=== PATIENT | male | born 1950 | race American Indian/Alaskan Native ===

== ENCOUNTER 2019-02-25 05:54 | Observation (INO) | payer MEDICARE ==
[~2019-02-25 05:54] MED LIST: LACTATED RINGERS 1,000 ML IV SCH
[2019-02-25] MEDS ORDERED: NORVASC PO NR (06:00)
[2019-02-25] MEDS ORDERED: ANCEF/STERILE WATER 2 GM/20 ML 2 GM/20 ML SYRINGE IV NR (06:00)
[2019-02-25] MEDS ORDERED: ZOFRAN IV PRN ×2 (07:15→10:04)
[2019-02-25] MEDS ORDERED: SUBLIMAZE IV PRN (07:15)
--- NOTE | 2019-02-25 07:37 | Anesthesia Day of Surgery ---
Anesthesia Day of Surgery - Day of Surgery Patient Examined: Yes Patient H&P Reviewed: Yes Patient is NPO: Yes Beta Blockers: Yes
--- NOTE | 2019-02-25 07:37 | Anesthesia Consultation ---
Anesthesia Consult and Med Hx Date of service: 02/25/19 - Airway Anesthetic Teeth Evaluation: Poor (reports multiple loose teeth, chipped top incisors) ROM Head & Neck: Adequate Mental/Hyoid Distance: Inadequate Mallampati Class: Class III Intubation Access Assessment: Possibly Difficult - Pulmonary Exam CTA: Yes - Cardiac Exam Cardiac Exam: RRR - Pre-Operative Health Status ASA Pre-Surgery Classification: ASA3 Proposed Anesthetic Plan: General - Pulmonary Hx Smoking: Yes (currently 1/2 PPD) Hx Respiratory Symptoms: No COPD: No Hx Sleep Apnea: No - Cardiovascular System Hx Hypertension: Yes (will give home dose antihypertensives this morning) Hx Coronary Artery Disease: Yes Hx Heart Attack/AMI: Yes (>10yrs ago) Hx Angina: No Hx Percutaneous Transluminal Coronary Angioplasty (PTCA): No Hx Cardia Arrhythmia: No - Central Nervous System CVA: No Hx Psychiatric Problems: No - Gastrointestinal Hx Gastroesophageal Reflux Disease: Yes (controlled) - Endocrine Hx Renal Disease: No Hx Liver Disease: No Hx Insulin Dependent Diabetes: No Hx Non-Insulin Dependent Diabetes: No Hx Thyroid Disease: No - Other Systems Hx Obesity: No - Additional Comments Anesthesia Medical History Comments: No hx anesthetic complications. >4 mets functional capacity. No symptoms of decompensation.
[2019-02-25] MEDS ORDERED: VERSED ONE (07:47)
[2019-02-25] MEDS ORDERED: DIPRIVAN 10 MG/ML IV ONE (07:48)
[2019-02-25] MEDS ORDERED: SUBLIMAZE ONE (07:48)
[2019-02-25] MEDS ORDERED: OMNIPAQUE (240mg) IV ONE (08:11)
[2019-02-25] MEDS ORDERED: NACL 0.9% IR ONE (08:11)
[2019-02-25] MEDS ORDERED: NEO SYNEPHRINE ONE (08:30)
[2019-02-25] MEDS ORDERED: LASIX ONE (09:00)
[2019-02-25] MEDS ORDERED: XYLOCAINE MPF 2% ONE (09:00)
--- NOTE | 2019-02-25 10:03 | Post Operative Note ---
Date of procedure: 02/25/19 Pre-op diagnosis: hematuria Post-op diagnosis: other (invassive bladder cancer) Findings: solid bladder cancer Procedure: cysto bipsies rpgs turbt Anesthesia: GETA Surgeon: WILVER MADRID Estimated blood loss: minimal Pathology: list (bladder prostate) Specimen disposition: to lab Condition: stable Disposition: PACU
[2019-02-25] MEDS ORDERED: NARCAN 0.4 MG/1 ML IV PRN (10:04)
[2019-02-25] MEDS ORDERED: NACL 0.9% IR PRN (10:04)
[2019-02-25] MEDS ORDERED: AMBIEN PO PRN (10:04)
[2019-02-25] MEDS ORDERED: NORMODYNE IV ONE ×2 (10:23→10:26)
--- NOTE | 2019-02-25 10:40 | Operative Report ---
PREOPERATIVE DIAGNOSES: Gross hematuria, bladder mass, solid anterior bladder mass with evidence of surrounding erythema, J-hooking of both ureters, mild prostatic enlargement. POSTOPERATIVE DIAGNOSES: Gross hematuria, bladder mass, solid anterior bladder mass with evidence of surrounding erythema, J-hooking of both ureters, mild prostatic enlargement. PROCEDURE: Cystoscopy, retrograde, bladder biopsies, transurethral resection of bladder tumor, transurethral biopsies of the prostate fulguration. SURGEON: Holger Emmanuel MD ANESTHESIA: General. FINDINGS: This is a gentleman who presented 3 days ago with gross hematuria that has been going on for a while. He is a heavy smoker and now presents for treatment. DESCRIPTION OF PROCEDURE: The patient was brought to the operating room and placed on the operating table. Following induction of anesthesia, he was placed in lithotomy position, prepped and draped in usual sterile fashion. Cystourethroscopy showed a mass with surrounding bullous edema. Biopsies were taken, posterior wall and the surrounding area and cauterized. Retrograde showed J-hooking and very narrow and very tiny pinpoint orifices. We did not need to place a catheter because it looked like there was a large tumor with debris in the bladder. Cytology was sent. The resectoscope was placed under direct vision and the solid tumor was difficult to resect because it was very anterior. We used pressure. It was anterior and towards the dome. We did not want to perforate. We sent a frozen section and that came back high-grade necrotic very poorly differentiated cancer. We cauterized the area. We biopsied the prostatic urethra. The patient tolerated the procedure well. A 3-way catheter was clear. Family notified, brought to recovery room with minimal blood loss in stable condition. JOB# [id number] DONAVAN/DARIUS
[2019-02-25] MEDS ORDERED: NEOSPORIN GU IR ONE (11:00)
[2019-02-25] MEDS ORDERED: NACL IR ONE (11:00)
[2019-02-25] MEDS: ANCEF/NS 1 GM/50 ML 1 GM/50 ML BAG IV SCH ×2 (13:00→21:35)
--- NOTE | 2019-02-25 13:19 | Consultation ---
History of Present Illness - Reason for Consult Consult date: 02/25/19 HTN Requesting physician: GREGORY DOE - History of Present Illness 68 YO Male with HTN, Nicotine Dependence, [place], Obesity Hypoventilation, GERD, [place], CAD admitted for elective urologic surgery. Consult placed by Dr. Doe for medical management. Pt seen and evaluated in his room. Pt denies fever, chills, CP, Palpitations, NVD, Trauma, BRBPR, Productive Cough, skin rash, or recent ill contacts. No reported nursing events. Past History Past Medical History: acute [place], CAD, GERD, other ([place], Obeisty Hypoventilation) Past Surgical History: Other (Bladder surgery) Social history: single, smoking Family history: CAD, hypertension Medications and Allergies Allergies Allergy/AdvReac Type Severity Reaction Status Date / Time No Known Allergies Allergy Unverified 02/25/19 06:32 Home Medications Medication Instructions Recorded Confirmed Last Taken Type Famotidine 02/25/19 02/24/19 20:00 History Lisinopril 02/25/19 02/24/19 20:00 History Metoprolol 02/25/19 02/24/19 20:00 History Pravastatin 02/25/19 02/24/19 20:00 History amLODIPine 02/25/19 02/24/19 20:00 History Active Meds: Active Medications Amlodipine Besylate (Norvasc) 10 mg PO PREOP NR Stop: 02/25/19 16:00 Last Admin: 02/25/19 07:59 Dose: 10 mg Documented by: Fentanyl (Sublimaze) 50 mcg IV Q5MIN PRN PRN Reason: Pain , Severe (7-10) Stop: 02/25/19 20:00 Last Admin: 02/25/19 10:15 Dose: 50 mcg Documented by: Lactated Ringer's (Lactated Ringers) 1,000 mls @ 100 mls/hr IV DIRECT YONATHAN Last Admin: 02/25/19 06:36 Dose: 100 mls/hr Documented by: Potassium Chloride/Dextrose/Sod Cl (D5w/0.45% Nacl/Kcl 20 Meq) 20 meq in 1,000 mls @ 125 mls/hr IV DIRECT YONATHAN Cefazolin Sodium (Ancef/Ns 1 Gm/50 Ml) 1 gm in 50 mls @ 100 mls/hr IV Q8H YONATHAN; Protocol Stop: 02/26/19 12:29 Naloxone HCl (Narcan 0.4 Mg/1 Ml) 0.1 mg IV Q2MIN PRN PRN Reason: Res Rate </= 8 or 02 SAT < 92% Ondansetron HCl (Zofran) 4 mg IV ONCE PRN PRN Reason: Nausea And Vomiting Stop: 02/25/19 20:00 Ondansetron HCl (Zofran) 4 mg IV Q8H PRN PRN Reason: Nausea And Vomiting Oxycodone/Acetaminophen (Percocet 5/325) 2 tab PO Q6H PRN PRN Reason: Pain, Moderate (4-6) Sodium Chloride (Nacl 0.9%) 30 ml IR Q2H PRN PRN Reason: Wound Care Sodium Chloride (Nacl 0.9%) 2,000 ml IR DIRECT YONATHAN Zolpidem Tartrate (Ambien) 5 mg PO QHS PRN PRN Reason: Sleep Review of Systems Constitutional: no weight loss, no weight gain, no fever, no chills Ears, nose, mouth and throat: no ear pain, no ear discharge, no tinnitis, no decreased hearing, no nose pain Cardiovascular: no chest pain, no orthopnea, no palpitations, no rapid/irregular heart beat, no edema Respiratory: no cough, no cough with sputum, no excessive sputum, no hemoptysis, no shortness of breath Gastrointestinal: no nausea, no vomiting, no diarrhea, no constipation Genitourinary Male: no hematuria, no urinary hesitancy, no incontinence, no genital pain Rectal: no pain, no incontinence, no bleeding Musculoskeletal: no neck stiffness, no arm numbness/tingling, no low back pain, no leg numbness/tingling Integumentary: no rash, no pruritis, no redness, no sores, no wounds, no jaundice Neurological: no transient paralysis, no paralysis, no weakness, no parathesias, no numbness, no seizures, no syncope Psychiatric: no anxiety, no memory loss, no change in sleep habits, no sleep disturbances, no insomnia, no hypersomnia, no change in appetite Endocrine: no cold intolerance, no heat intolerance, no excessive thirst, no polydipsia, no polyuria Hematologic/Lymphatic: no easy bruising, no easy bleeding Allergic/Immunologic: no urticaria, no allergic rhinitis, no wheezing Exam - Constitutional Vitals: Temp Pulse Resp BP Pulse Ox 98.4 F 52 L 18 197/97 100 02/25/19 12:32 02/25/19 11:06 02/25/19 12:32 02/25/19 12:32 02/25/19 11:06 General appearance: Present: no acute distress, well-nourished - EENT Eyes: Present: PERRL ENT: hearing intact, clear oral mucosa - Neck Neck: Present: supple, normal ROM - Respiratory Respiratory effort: normal Respiratory: bilateral: CTA - Cardiovascular Heart Sounds: Present: S1 & S2. Absent: rub, click - Extremities Extremities: pulses symmetrical, No edema Peripheral Pulses: within normal limits - Abdominal General gastrointestinal: Present: soft, non-tender, non-distended, normal bowel sounds Male genitourinary: Present: normal - Integumentary Integumentary: Present: clear, warm, dry - Musculoskeletal Musculoskeletal: gait normal, strength equal bilaterally - Psychiatric Psychiatric: appropriate mood/affect, intact judgment & insight - Neurologic Neurologic: CNII-XII intact, moves all extremities Assessment and Plan - Patient Problems (1) HTN (hypertension) Current Visit: Yes Status: Acute Qualifiers: Hypertension type: essential hypertension Qualified Code(s): I10 - Essential (primary) hypertension Plan to address problem: Monitor BP q shift, IV hydralazine prn, supportive care. (2) CAD (coronary artery disease) Current Visit: Yes Status: Acute Qualifiers: Associated angina: without angina Plan to address problem: low cholesterol diet, supportive care, risk factor reduction. (3) GERD (gastroesophageal reflux disease) Current Visit: Yes Status: Acute Qualifiers: Esophagitis presence: without esophagitis Qualified Code(s): K21.9 - Gastro-esophageal reflux disease without esophagitis Plan to address problem: PPI therapy, (4) Obesity hypoventilation syndrome Current Visit: Yes Status: Acute Plan to address problem: Supplemental oxygen, nebulizer therapy, NIPPV as clinically indicated, Incentive spirometry.
--- NOTE | 2019-02-25 14:19 | Fluoroscopy Report ---
FLUOROSCOPY RETROGRADE UROGRAPHY: HISTORY: Hematuria. FINDINGS: Fluoroscopy was provided by radiology during retrograde urography by the urologist. 4 fluoroscopic images were captured. ERCP and bladder biopsies were performed per the operative note. Please correlate with the procedural report if needed.
--- NOTE | 2019-02-25 14:20 | Consultation ---
History of Present Illness Consult date: 02/25/19 Consult reason: chest pain History of present illness: Patient is a 69 year old poor historian. Records reviewed reports patient has a history of bladder mass who has undergone cystoscopy and transurethral resection of the bladder tumor admitted to this hospital post procedure. Upon arrival to the surgical floor, patient complained of chest pain thus this cardiac consultation. Patient describes chest pain as mid-sternal, associated with the urge to urinate. Noted with uncontrolled hypertension, blood pressure 197/97. Patient denies diaphoresis, unusual shortness of breath or palpitations. A 12 lead ECG is sinus rhythm, no acute ischemic changes. Medications and Allergies Allergies Allergy/AdvReac Type Severity Reaction Status Date / Time No Known Allergies Allergy Unverified 02/25/19 06:32 Home Medications Medication Instructions Recorded Confirmed Last Taken Type Famotidine 02/25/19 02/24/19 20:00 History Lisinopril 02/25/19 02/24/19 20:00 History Metoprolol 02/25/19 02/24/19 20:00 History Pravastatin 02/25/19 02/24/19 20:00 History amLODIPine 02/25/19 02/24/19 20:00 History Active Meds: Active Medications Amlodipine Besylate (Norvasc) 10 mg PO PREOP NR Stop: 02/25/19 16:00 Last Admin: 02/25/19 07:59 Dose: 10 mg Documented by: Fentanyl (Sublimaze) 50 mcg IV Q5MIN PRN PRN Reason: Pain , Severe (7-10) Stop: 02/25/19 20:00 Last Admin: 02/25/19 10:15 Dose: 50 mcg Documented by: Lactated Ringer's (Lactated Ringers) 1,000 mls @ 100 mls/hr IV DIRECT YONATHAN Last Admin: 02/25/19 06:36 Dose: 100 mls/hr Documented by: Potassium Chloride/Dextrose/Sod Cl (D5w/0.45% Nacl/Kcl 20 Meq) 20 meq in 1,000 mls @ 125 mls/hr IV DIRECT YONATHAN Cefazolin Sodium (Ancef/Ns 1 Gm/50 Ml) 1 gm in 50 mls @ 100 mls/hr IV Q8H YONATHAN; Protocol Stop: 02/26/19 12:29 Naloxone HCl (Narcan 0.4 Mg/1 Ml) 0.1 mg IV Q2MIN PRN PRN Reason: Res Rate </= 8 or 02 SAT < 92% Ondansetron HCl (Zofran) 4 mg IV ONCE PRN PRN Reason: Nausea And Vomiting Stop: 02/25/19 20:00 Ondansetron HCl (Zofran) 4 mg IV Q8H PRN PRN Reason: Nausea And Vomiting Oxycodone/Acetaminophen (Percocet 5/325) 2 tab PO Q6H PRN PRN Reason: Pain, Moderate (4-6) Sodium Chloride (Nacl 0.9%) 30 ml IR Q2H PRN PRN Reason: Wound Care Sodium Chloride (Nacl 0.9%) 2,000 ml IR DIRECT YONATHAN Zolpidem Tartrate (Ambien) 5 mg PO QHS PRN PRN Reason: Sleep Physical Examination Vital Signs Temp Pulse Resp BP Pulse Ox 98.4 F 61 18 178/95 98 02/25/19 06:30 02/25/19 06:30 02/25/19 06:30 02/25/19 06:30 02/25/19 06:30 General appearance: no acute distress HEENT: Positive: PERRL Neck: Positive: trachea midline Cardiac: Positive: Reg Rate and Rhythm Lungs: Positive: Decreased Breath Sounds Neuro: Positive: Grossly Intact Extremities: Absent: edema Assessment and Plan Bladder mass s/p cystoscopy/TURBT Chest pain, atypical Hypertension -uncontrolled Tobacco abuse Recommend: Set of troponin. Optimal blood pressure management. Obtain prior cardiac records from his primary exercise specialist, Dr Reese, for review. Advised smoking cessation.
[2019-02-25] MEDS ORDERED: APRESOLINE IV PRN (17:00)
[2019-02-25] MEDS: PERCOCET 5/325 PO PRN (17:14)
--- NOTE | 2019-02-25 17:47 | Progress Note ---
Assessment and Plan miller clear suspect needs major operation cardiology help seen reflux an d bladder spasms Subjective Date of service: 02/25/19 Principal diagnosis: bladder cancer Objective - Constitutional Vitals: Vital Signs - 12hr 02/25/19 02/25/19 02/25/19 06:30 06:35 10:09 Temperature 98.4 F 98.4 F 97.0 F L Pulse Rate 61 61 79 Respiratory 18 18 13 Rate Blood Pressure 178/95 178/95 182/92 O2 Sat by Pulse 98 98 98 Oximetry 02/25/19 02/25/19 02/25/19 10:14 10:15 10:19 Temperature Pulse Rate 77 72 Respiratory 16 16 14 Rate Blood Pressure 201/99 181/95 O2 Sat by Pulse 100 100 Oximetry 02/25/19 02/25/19 02/25/19 10:24 10:39 10:44 Temperature 97.6 F Pulse Rate 75 64 62 Respiratory 14 16 16 Rate Blood Pressure 165/94 164/86 166/88 O2 Sat by Pulse 100 100 100 Oximetry 02/25/19 02/25/19 11:06 12:32 Temperature 97.4 F L 98.4 F Pulse Rate 52 L Respiratory 18 18 Rate Blood Pressure 180/92 197/97 O2 Sat by Pulse 100 Oximetry General appearance: Present: no acute distress - Respiratory Respiratory effort: normal Medications & Allergies - Medications Allergies/Adverse Reactions: Allergies No Known Allergies Allergy (Unverified 02/25/19 06:32) Home Medications: Home Medications Medication Instructions Recorded Confirmed Last Taken Type Famotidine 02/25/19 02/24/19 20:00 History Lisinopril 02/25/19 02/24/19 20:00 History Metoprolol 02/25/19 02/24/19 20:00 History Pravastatin 02/25/19 02/24/19 20:00 History amLODIPine 02/25/19 02/24/19 20:00 History Active Medications: Generic Name Dose Route Start Last Admin Trade Name Freq PRN Reason Stop Dose Admin Amlodipine Besylate 10 mg 02/25/19 18:00 Norvasc PO QDAY YONATHAN Fentanyl 50 mcg 02/25/19 07:15 02/25/19 10:15 Sublimaze IV 02/25/19 20:00 50 mcg Q5MIN PRN Administration Pain , Severe (7-10) Hydralazine HCl 10 mg 02/25/19 17:00 Apresoline IV Q6H PRN htn Lactated Ringer's 1,000 mls @ 100 mls/hr 02/22/19 17:00 02/25/19 06:36 Lactated Ringers IV 100 mls/hr DIRECT YONATHAN Administration Potassium Chloride/Dextrose/Sod Cl 20 meq in 1,000 mls @ 125 mls/hr 02/25/19 11:00 D5w/0.45% Nacl/Kcl 20 Meq IV DIRECT YONATHAN Cefazolin Sodium 1 gm in 50 mls @ 100 mls/hr 02/25/19 12:00 Ancef/Ns 1 Gm/50 Ml IV 02/26/19 12:29 Q8H YONATHAN Protocol Lisinopril 10 mg 02/25/19 18:00 Zestril PO QDAY YONATHAN Naloxone HCl 0.1 mg 02/25/19 10:04 Narcan 0.4 Mg/1 Ml IV Q2MIN PRN Res Rate </= 8 or 02 SAT < 92% Ondansetron HCl 4 mg 02/25/19 07:15 Zofran IV 02/25/19 20:00 ONCE PRN Nausea And Vomiting Ondansetron HCl 4 mg 02/25/19 10:04 Zofran IV Q8H PRN Nausea And Vomiting Oxycodone/Acetaminophen 2 tab 02/25/19 10:04 02/25/19 17:14 Percocet 5/325 PO 2 tab Q6H PRN Administration Pain, Moderate (4-6) Sodium Chloride 30 ml 02/25/19 10:04 Nacl 0.9% IR Q2H PRN Wound Care Sodium Chloride 2,000 ml 02/25/19 11:00 Nacl 0.9% IR DIRECT YONATHAN Zolpidem Tartrate 5 mg 02/25/19 10:04 Ambien PO QHS PRN Sleep
[2019-02-25] MEDS: NORVASC PO SCH (18:48)
[2019-02-25] MEDS: ZESTRIL PO SCH (18:49)
[2019-02-25] MEDS: NACL 0.9% IR SCH ×3 (19:00→23:46)
[2019-02-25] MEDS ORDERED: MORPHINE IV PRN (23:09)
[2019-02-25] MEDS: D5W/0.45% NACL/KCL 20 MEQ 20 MEQ/1,000 ML BAG IV SCH (23:45)
[2019-02-26] MEDS: NACL 0.9% IR SCH ×4 (01:00→06:30)
[2019-02-26] MEDS: ANCEF/NS 1 GM/50 ML 1 GM/50 ML BAG IV SCH (05:01)
[2019-02-26] MEDS: PERCOCET 5/325 PO PRN (07:33)
[2019-02-26] MEDS: D5W/0.45% NACL/KCL 20 MEQ 20 MEQ/1,000 ML BAG IV SCH (07:37)
[2019-02-26 09:38] VITALS: BP 180/95
[2019-02-26] MEDS: ZESTRIL PO SCH (09:39)
[2019-02-26] MEDS: NORVASC PO SCH (09:39)
--- NOTE | 2019-02-26 09:49 | Progress Note ---
Assessment and Plan [facility] po well miller clear home today if ok with cardiology Subjective Date of service: 02/26/19 Principal diagnosis: bladder cancer Objective - Constitutional Vitals: Vital Signs - 12hr 02/25/19 02/26/19 02/26/19 22:47 00:30 00:44 Temperature 98.1 F 98.1 F Pulse Rate 64 64 Respiratory 17 18 18 Rate Blood Pressure 139/75 Blood Pressure 139/75 [Right] O2 Sat by Pulse 95 94 Oximetry 02/26/19 02/26/19 02/26/19 03:39 04:57 07:33 Temperature 97.9 F 97.9 F Pulse Rate 60 60 Respiratory 18 18 16 Rate Blood Pressure 150/85 Blood Pressure 150/85 [Right] O2 Sat by Pulse 100 100 Oximetry 02/26/19 07:47 Temperature 95.5 F L Pulse Rate 63 Respiratory 20 Rate Blood Pressure 180/95 Blood Pressure [Right] O2 Sat by Pulse 99 Oximetry General appearance: Present: no acute distress - Respiratory Respiratory effort: normal Extremities: no ischemia - Gastrointestinal General gastrointestinal: Present: soft, non-tender Medications & Allergies - Medications Allergies/Adverse Reactions: Allergies No Known Allergies Allergy (Unverified 02/25/19 06:32) Home Medications: Home Medications Medication Instructions Recorded Confirmed Last Taken Type Famotidine 02/25/19 02/24/19 20:00 History Lisinopril 02/25/19 02/24/19 20:00 History Metoprolol 02/25/19 02/24/19 20:00 History Pravastatin 02/25/19 02/24/19 20:00 History amLODIPine 02/25/19 02/24/19 20:00 History Active Medications: Generic Name Dose Route Start Last Admin Trade Name Freq PRN Reason Stop Dose Admin Amlodipine Besylate 10 mg 02/25/19 18:00 02/26/19 09:39 Norvasc PO 10 mg QDAY YONATHAN Administration Hydralazine HCl 10 mg 02/25/19 17:00 02/25/19 17:56 Apresoline IV 10 mg Q6H PRN Administration htn Lactated Ringer's 1,000 mls @ 100 mls/hr 02/22/19 17:00 02/25/19 06:36 Lactated Ringers IV 100 mls/hr DIRECT YONATHAN Administration Potassium Chloride/Dextrose/Sod Cl 20 meq in 1,000 mls @ 125 mls/hr 02/25/19 11:00 02/26/19 07:37 D5w/0.45% Nacl/Kcl 20 Meq IV 125 mls/hr DIRECT YONATHAN Administration Cefazolin Sodium 1 gm in 50 mls @ 100 mls/hr 02/25/19 12:00 02/26/19 05:01 Ancef/Ns 1 Gm/50 Ml IV 02/26/19 12:29 100 mls/hr Q8H YONATHAN Administration Protocol Lisinopril 10 mg 02/25/19 18:00 02/26/19 09:39 Zestril PO 10 mg QDAY YONATHAN Administration Morphine Sulfate 2 mg 02/25/19 23:09 Morphine IV 02/26/19 23:59 Q4H PRN Pain , Severe (7-10) Naloxone HCl 0.1 mg 02/25/19 10:04 Narcan 0.4 Mg/1 Ml IV Q2MIN PRN Res Rate </= 8 or 02 SAT < 92% Ondansetron HCl 4 mg 02/25/19 10:04 Zofran IV Q8H PRN Nausea And Vomiting Oxycodone/Acetaminophen 2 tab 02/25/19 10:04 02/26/19 07:33 Percocet 5/325 PO 2 tab Q6H PRN Administration Pain, Moderate (4-6) Sodium Chloride 30 ml 02/25/19 10:04 Nacl 0.9% IR Q2H PRN Wound Care Sodium Chloride 2,000 ml 02/25/19 11:00 02/26/19 06:30 Nacl 0.9% IR 2,000 ml DIRECT YONATHAN Administration Zolpidem Tartrate 5 mg 02/25/19 10:04 Ambien PO QHS PRN Sleep
--- NOTE | 2019-02-26 09:51 | Discharge Summary ---
Short Stay Discharge Plan Activity: other (no straining ) Weight Bearing Status: Full Weight Bearing Diet: low fat, low cholesterol, low salt Special Instructions: other (inc fluids ) Durable Medical Equipment Needed Upon Discharge: other (home with catheter ) Follow up with: JANIA BRAGA MD [Primary Care Provider] - 7 Days WILVER MADRID MD [Staff Physician] - 7 Days
--- NOTE | 2019-02-26 11:25 | Progress Note ---
Assessment and Plan Bladder mass s/p cystoscopy/TURBT Chest pain, atypical Hypertension Tobacco abuse Recommend: Advised smoking cessation. Otherwise conservative cardiac management. Subjective Date of service: 02/26/19 Principal diagnosis: bladder cancer Interval history: Patient is resting in bed and appears comfortable. Currently, denies chest pain. Objective Vital Signs Temp Pulse Resp BP BP Pulse Ox 02/26/19 07:47 95.5 F L 63 20 180/95 99 02/26/19 07:33 16 02/26/19 04:57 97.9 F 60 18 150/85 100 02/26/19 03:39 97.9 F 60 18 150/85 100 02/26/19 00:44 98.1 F 64 18 139/75 94 02/26/19 00:30 98.1 F 64 18 139/75 95 02/25/19 22:47 17 02/25/19 19:31 98.9 F 70 18 161/88 96 02/25/19 17:56 175/92 02/25/19 16:34 98.2 F 63 18 175/92 98 02/25/19 12:32 98.4 F 18 197/97 - Physical Examination General: No Apparent Distress HEENT: Positive: PERRL Neck: Positive: trachea midline Cardiac: Positive: Reg Rate and Rhythm Lungs: Positive: Decreased Breath Sounds Neuro: Positive: Grossly Intact Extremities: Absent: edema
--- NOTE | 2019-02-26 15:23 | Progress Note ---
Assessment and Plan Assessment and plan: (1) HTN (hypertension) Monitor BP q shift, IV hydralazine prn, supportive care. (2) CAD (coronary artery disease) - Patient had an episode of chest pain yesterday and cardiology evaluated the patient and cleared for discharge (3) GERD (gastroesophageal reflux disease) PPI therapy, (4) Obesity hypoventilation syndrome Supplemental oxygen, nebulizer therapy, NIPPV as clinically indicated, Incentive spirometry. Patient has other Cancer; management per urology We'll follow the patient along Thank you for the consult History Interval history: Patient was seen and evaluated this morning, patient is complaining pain at the site of catheter insertion. Hospitalist Physical - Physical exam Narrative exam: Not in cardiopulmonary distress. The patient is obese. Vital signs as documented. Head exam is unremarkable. No scleral icterus . Neck is without jugular venous distension, thyromegaly, or carotid bruits. Lungs are clear to auscultation. Cardiac exam reveals regular rate and Rhythm. First and second heart sounds normal. No murmurs, rubs or gallops. Abdominal exam reveals normal bowel sounds, no masses, no organomegaly and no aortic enlargement. Extremities are nonedematous and both femoral and pedal pulses are normal. ; patient has a Cronin catheter in place and draining blood tinged urine. INTEGRATION AIDE: Alert and oriented 3. No focal weakness. - Constitutional Vitals: Temp Pulse Resp BP Pulse Ox 95.5 F L 63 20 180/95 99 02/26/19 07:47 02/26/19 07:47 02/26/19 07:47 02/26/19 07:47 02/26/19 07:47 General appearance: Present: no acute distress Results - Labs Labs: Laboratory Last Values < 0.010 ng/mL (0.00-0.029) 02/26/19 07:00 Active Medications - Current Medications Current Medications: Generic Name Dose Route Start Last Admin Trade Name Freq PRN Reason Stop Dose Admin Amlodipine Besylate 10 mg 02/25/19 18:00 02/26/19 09:39 Norvasc PO 10 mg QDAY YONATHAN Administration Hydralazine HCl 10 mg 02/25/19 17:00 02/25/19 17:56 Apresoline IV 10 mg Q6H PRN Administration htn Lactated Ringer's 1,000 mls @ 100 mls/hr 02/22/19 17:00 02/25/19 06:36 Lactated Ringers IV 100 mls/hr DIRECT YONATHAN Administration Potassium Chloride/Dextrose/Sod Cl 20 meq in 1,000 mls @ 125 mls/hr 02/25/19 11:00 02/26/19 07:37 D5w/0.45% Nacl/Kcl 20 Meq IV 125 mls/hr DIRECT YONATHAN Administration Lisinopril 10 mg 02/25/19 18:00 02/26/19 09:39 Zestril PO 10 mg QDAY YONATHAN Administration Morphine Sulfate 2 mg 02/25/19 23:09 02/26/19 11:53 Morphine IV 02/26/19 23:59 2 mg Q4H PRN Administration Pain , Severe (7-10) Naloxone HCl 0.1 mg 02/25/19 10:04 Narcan 0.4 Mg/1 Ml IV Q2MIN PRN Res Rate </= 8 or 02 SAT < 92% Ondansetron HCl 4 mg 02/25/19 10:04 Zofran IV Q8H PRN Nausea And Vomiting Oxycodone/Acetaminophen 2 tab 02/25/19 10:04 02/26/19 07:33 Percocet 5/325 PO 2 tab Q6H PRN Administration Pain, Moderate (4-6) Sodium Chloride 30 ml 02/25/19 10:04 Nacl 0.9% IR Q2H PRN Wound Care Sodium Chloride 2,000 ml 02/25/19 11:00 02/26/19 06:30 Nacl 0.9% IR 2,000 ml DIRECT YONATHAN Administration Zolpidem Tartrate 5 mg 02/25/19 10:04 Ambien PO QHS PRN Sleep
== END 2019-02-26 16:30 | disposition home or self-care (01) ==
LOC: OR 05:54 → 3B-SURG 10:04
PROVIDERS: ADMIT Urology; ATTEND Urology
DX: N32.9 Bladder disorder, unspecified (principal); R31.0 Gross hematuria; I10 Essential (primary) hypertension; I25.10 Atherosclerotic heart disease of native coronary artery without angina pectoris; K21.9 Gastro-esophageal reflux disease without esophagitis; E66.2 Morbid (severe) obesity with alveolar hypoventilation; F17.200 Nicotine dependence, unspecified, uncomplicated; Z79.899 Other long term (current) drug therapy
CPT/HCPCS: 36415; 52601; 74420; 84484; 88112; 88305; 88307; 88331; 88342; 93005; 93010; 96365; 96366; 96375; A4217; G0378; J0360; J0690; J2250; J2270; J2370; J2704; J3010; J7120; Q9967; 88341; J1940

== ENCOUNTER 2019-06-13 10:42 | Outpatient (CLI) | payer MEDICARE ==
--- NOTE | 2019-06-13 15:25 | PET Report ---
PET/CT HISTORY: C67.8, Z72.0. Malignant neoplasm of bladder, initial staging. TECHNIQUE: The patient's fasting blood glucose was 108. The patient weighed underdone 50 lbs. The patient was injected with 15.9 mCi of FDG in the right antecubital fossa at 1151 hours and imaging wa s started at 37 hours. The patient was imaged from the skull base to the thighs. All CT scans at [facility] location are performed using CT dose reduction for ALARA by means of automated exposure control. COMPARISON: No relevant comparison at this facility FINDINGS: FDG findings: An approximate 5.3 x 2.3 cm mass is identified in the anterior dome of the bladder. Ma x SUV of this lesion is difficult to measure due to activity in the bladder. Max SUV measures 5.2. No additional areas of abnormal increased metabolic activity is identified. Non-FDG findings: The imaged brain is unremarkable. Chronic left maxillary sinusitis is noted. No ce rvical mass or adenopathy. Heart and mediastinal structures are unremarkable. The lungs are clear. No suspicious nodule or mass. Mild underlying emphysematous changes are noted. The liver, biliary system, pancreas, spleen, kidneys, adrenal glands and bowel loops are unremarkable . Mild diverticulosis of the distal colon is noted. A small supraumbilical hernia containing a short segment of small bowel is identified. There is no evidence for bowel obstruction. No abdominal or pelvic adenopathy or bony lesion is identified. IMPRESSION: 5.3 x 2.3 cm hypermetabolic mass at the dome of the bladder consistent with bladder neoplasm. There i s no evidence for metastatic disease at this time. Small supraumbilical hernia containing a short segment of small bowel. No bowel obstruction. Signer Name: Henrique Mcknight Jr, MD Signed: 06/13/2019 3:20 PM Workstation Name: [id number]
== END 2019-06-13 10:43 | disposition home or self-care (01) ==
LOC: PET 10:42
PROVIDERS: ATTEND Internal Medicine Hematology & Oncology
DX: K43.9 Ventral hernia without obstruction or gangrene (principal); C67.9 Malignant neoplasm of bladder, unspecified; I10 Essential (primary) hypertension; Z72.0 Tobacco use
CPT/HCPCS: 78815; 82962; A9552